=== PATIENT | female | born 1995 | race African-American/Black ===

== ENCOUNTER 2016-03-23 12:09 | Emergency (ER) | payer SELFPAY ==
[2016-03-23 12:28] VITALS: BP 157/93
--- NOTE | 2016-03-23 13:08 | UC ---
Headache HPI - HPI Summary HPI Summary: 1 MONTH OF RIGHT SIDED KING DESCRIBED "SHARP AND THROBBING". CONSTANT KING - IBUPROFEN NOT HELPFUL. ALSO HAS RIGHT EAR PAIN PAST 2 WEEKS. VISION IN RIGHT EYE IS OCCASIONALLY BLURRY. HEARING SLIGHTLY MUTED. IS NOT A KING PERSON; DOES NOT USUALLY GET KING. DENIES FEVER. DOES HAVE NAUSEA AND PHOTOPHOBIA. - History Of Current Complaint Chief Complaint: UCGeneralIllness Stated Complaint: HEADACHES Time Seen by Provider: 03/23/16 13:06 Hx Obtained From: Patient Hx Last Menstrual Period: 02/13/16 Onset/Duration: Gradual Onset, Lasting Weeks, Still Present Pain Intensity: 10 Pain Scale Used: 0-10 Numeric Timing: Constant Character: Sharp Location of Headache: Parietal Aggravating Factor: Bright Lights Allevating Factors: Nothing Associated Signs And Symptoms: Positive: Nausea, Visual Changes - OCCASIONAL RIGHT EYE BLURRINESS - Allergies/Home Medications Allergies/Adverse Reactions: Allergies Allergy/AdvReac Type Severity Reaction Status Date / Time Penicillins [PCN] Allergy Unknown Unknown Verified 03/23/16 12:28 Reaction Details Home Medications: Home Medications Zubfern-Nozwlckftkgcy-Nfiuobtz [Excedrin Extra Strength 250-250-65 mg] 2 tab PO PRN 03/23/16 [History] PMH/Surg Hx/FS Hx/Imm Hx Previously Healthy: Yes Endocrine History Of: Denies: Diabetes, Thyroid Disease Cardiovascular History Of: Denies: Cardiac Disorders, Hypertension Respiratory History Of: Denies: COPD, Asthma GI/ History Of: Denies: Ulcer - Surgical History Surgical History: None Surgery Procedure, Year, and Place: - Family History Known Family History: Positive: Diabetes - Social History Alcohol Use: Occasionally Substance Use Type: None Smoking Status (MU): Light Every Day Tobacco Smoker Type: Cigarettes Amount Used/How Often: 2 sig a day Household Exposure Type: Cigarettes - Immunization History Most Recent Influenza Vaccination: none Review of Systems Constitutional: Negative ENT: Ear Ache Respiratory: Negative Cardiovascular: Negative Gastrointestinal: Other - NAUSEA Genitourinary: Negative Neurological: Headache All Other Systems Reviewed And Are Negative: Yes Physical Exam Triage Information Reviewed: Yes Appearance: Well-Appearing, No Pain Distress, Well-Nourished Vital Signs: Initial Vital Signs Temp 98.7 F 03/23/16 12:21 Pulse 93 03/23/16 12:21 Resp 16 03/23/16 12:21 BP 157/93 03/23/16 12:21 Pulse Ox 100 03/23/16 12:21 Vital Signs Reviewed: Yes Eyes: Positive: Conjunctiva Clear ENT: Positive: Hearing grossly normal, Pharynx normal, TMs normal, Other: - FLUID BEHIND BOTH TMs Neck: Positive: Supple Respiratory: Positive: No respiratory distress, No accessory muscle use Cardiovascular: Positive: Pulses Normal Abdomen Description: Positive: Soft Musculoskeletal: Positive: No Edema Neurological: Positive: Alert Psychological: Positive: Age Appropriate Behavior Skin: Negative: rashes Diagnostics - Radiology CT HEAD W/O CONTRAST Xray Interpretation: No Acute Changes Radiology Interpretation Completed By: Radiologist Headache Course/Dx - Course Course Of Treatment: LMP 02/13/16. PT HAS NOT HAD SEX SINCE PRIOR TO HER LAST PERIOD. STATES NO POSSIBILITY OF . - Differential Dx/Diagnosis Provider Diagnoses: HEADACHE Discharge - Discharge Plan Condition: Stable Disposition: HOME Prescriptions: Ketorolac TAB (NF) [Toradol TAB (NF)] 10 mg PO Q6H PRN #12 tab PRN Reason: Headache Ondansetron ODT TAB* [Zofran Odt TAB*] 4 mg PO Q6H PRN #20 tab.odt PRN Reason: Nausea/Vomiting Patient Education Materials: General Headache (ED) Additional Instructions: CT HEAD UNREMARKABLE. GET YOUR VISION CHECKED TO MAKE SURE YOU DON'T NEED CORRECTIVE LENSES. GET ENOUGH REST AND HYDRATE WELL. GO TO THE ER WITHOUT FAIL IF YOUR SYMPTOMS WORSEN OR DO NOT IMPROVE. CALL THE NUMBER BELOW FOR ASSISTANCE IN ESTABLISHING WITH A PCP An additional resource available to assist in finding the appropriate physician for your health care needs is the [facility] ([facility]). You may contact them by calling [phone].
--- NOTE | 2016-03-23 13:48 | RAD ---
INDICATION: New onset headaches COMPARISON: October 22, 2013 TECHNIQUE: Noncontrast axial source images were acquired from the skull base to the vertex. FINDINGS: Ventricles/sulci: The ventricles and cisterns are normal in size and configuration for age. Brain parenchyma: There is no focal parenchymal finding, evidence of intracranial mass, or intracranial mass effect. Intracranial hemorrhage:None. Extra-axial spaces: There are no abnormal extra axial fluid collections or evidence of extra-axial mass. Calvarium: There is no calvarial fracture or other calvarial abnormality. Scalp: There is no evidence of scalp or extracalvarial soft tissue abnormality. Paranasal sinuses/mastoid: The visualized paranasal sinuses and the mastoid air cells are clear. Other: None. IMPRESSION: NEGATIVE EXAMINATION
[2016-03-23] MEDS ORDERED: Ketorolac INJ* 60 MG/2 ML VIAL IM ONE (13:55)
== END 2016-03-23 14:30 | disposition home or self-care (01) ==
LOC: UCEAST 12:09
DX: R51 Headache (principal); H92.01 Otalgia, right ear; R11.0 Nausea; H53.141 Visual discomfort, right eye; Z88.0 Allergy status to penicillin; F17.210 Nicotine dependence, cigarettes, uncomplicated
CPT/HCPCS: 70450; 96372; 99212; G0463; J1885

== ENCOUNTER 2016-07-21 13:01 | Emergency (ER) | payer OTHER ==
[2016-07-21 14:19] VITALS: BP 113/83
--- NOTE | 2016-07-21 16:07 | UC ---
Throat Pain/Nasal Gabriel HPI - HPI Summary HPI Summary: PATIENT ARRIVES TO ED WITH CC OF THROAT PAIN AND SEVERAL SYNCOPAL EPISODES OVER MANY YEARS. SHE STATES THE THROAT PAIN HAS BEEN PRESENT FOR ABOUT 2 WEEKS, BUT SYNCOPE, INTERMITTENT SHORTNESS OF BREATH AND INSOMNIA HAVE BEEN PRESENT FOR MANY YEARS AND SHE HAS NOT BEEN TO SEE A PROVIDER. SHE DENIES PCP AND STATES SHE HAS NEVER WANTED TO GO TO THE DOCTOR BECAUSE THEY ALWAYS GIVE BAD NEWS. SHE DENIES SYNCOPE OR SHORTNESS OF BREATH TODAY. IT WAS EXPLAINED TO PATIENT WE ARE UNABLE TO DO BLOOD WORK IN REGARDS TO LONG STANDING ISSUES AND SHE IS REFERRED TO PCP OFFICE. SHE IS WILLING TO GO AND UNDERSTANDS WE ARE LIMITED ABOUT TODAYS VISIT. SHE STATES SHE WORKS ABOUT 16 HOURS PER DAY AND DOESN'T DRINK WATER DURING THE DAY AND ONLY DRINKS COFFEE. THIS WAS EXPLAINED TO PATIENT A SOURCE OF HER ISSUES. - History of Current Complaint Chief Complaint: UCDizziness Stated Complaint: FAINTING,SORE THROAT Time Seen by Provider: 07/21/16 13:35 Hx Obtained From: Patient Hx Last Menstrual Period: currently having her period ?: No Onset/Duration: Gradual Onset, Worse Since - LAST FEW WEEKS Severity: Mild Pain Intensity: 0 Pain Scale Used: 0-10 Numeric Cough: None - Epiglottits Risk Factors Epiglottis Risk Factors: Negative - Allergies/Home Medications Allergies/Adverse Reactions: Allergies Allergy/AdvReac Type Severity Reaction Status Date / Time Penicillins [PCN] Allergy Unknown Unknown Verified 03/23/16 12:28 Reaction Details PMH/Surg Hx/FS Hx/Imm Hx Previously Healthy: Yes Endocrine History Of: Denies: Diabetes, Thyroid Disease Cardiovascular History Of: Denies: Cardiac Disorders, Hypertension Respiratory History Of: Denies: COPD, Asthma GI/ History Of: Denies: Ulcer - Surgical History Surgical History: None Surgery Procedure, Year, and Place: - Family History Known Family History: Positive: Diabetes - Social History Occupation: Employed Full-time Lives: With Family Alcohol Use: Occasionally Substance Use Type: None Smoking Status (MU): Light Every Day Tobacco Smoker Type: Cigarettes Amount Used/How Often: 2 sig a day Household Exposure Type: Cigarettes - Immunization History Most Recent Influenza Vaccination: none Review of Systems Constitutional: Negative Skin: Negative Eyes: Negative ENT: Sore Throat Respiratory: Negative Cardiovascular: Negative Genitourinary: Negative Motor: Negative Musculoskeletal: Negative Neurological: Negative Psychological: Negative All Other Systems Reviewed And Are Negative: Yes Physical Exam Triage Information Reviewed: Yes Appearance: Well-Appearing, No Pain Distress, Well-Nourished Vital Signs: Initial Vital Signs Temp 98.0 F 07/21/16 13:34 Pulse 70 07/21/16 13:34 Resp 16 07/21/16 13:34 BP 116/71 07/21/16 13:34 Pulse Ox 98 07/21/16 13:34 Vital Signs Reviewed: Yes Eye Exam: Normal Eyes: Positive: Conjunctiva Clear ENT: Positive: Pharynx normal, Tonsillar swelling Dental Exam: Normal Neck exam: Normal Neck: Positive: Supple, Nontender Respiratory Exam: Normal Respiratory: Positive: Chest non-tender, Lungs clear Cardiovascular Exam: Normal Cardiovascular: Positive: RRR Musculoskeletal Exam: Normal Musculoskeletal: Positive: Strength Intact Neurological Exam: Normal Neurological: Positive: Alert Psychological Exam: Normal Psychological: Positive: Normal Response To Family Skin Exam: Normal Throat Pain/Nasal Course/Dx - Course Course Of Treatment: PATIENT WAS ENCOURAGED TO FOLLOW UP WITH PCP FOR THESE ISSUES WHICH HAVE BEEN PRESENT FOR YEARS. SHE AGREES AND STATES SHE IS NOT FEELING SYNCOPE CURRENTLY. SHE IS CURRENTLY EXPERIENCING THROAT PAIN AND STREP TEST WAS NEGATIVE. ENCOURAGED TO REDUCE CAFFEINE INTAKE, REDUCE WORKING HOURS AND STRESS AND FOLLOW UP WITH PCP TO OBTAIN BLOOD WORK, ETC. SHE LOOKS OK ON EXAM AND IS AFEBRILE. SHE IS FEELING WELL OTHER THAN THE CURRENT SORE THROAT. PATIENT IS DISCHARGED WITH LIFESTYLE CHANGES AND INSTRUCTIONS. - Differential Dx/Diagnosis Differential Diagnosis/HQI/PQRI: Influenza, Pharyngitis, URI, Other - INSOMNIA Provider Diagnoses: CHRONIC SYNCOPE, SORE THROAT Discharge - Discharge Plan Condition: Stable Disposition: HOME Patient Education Materials: Syncope (ED), Insomnia (ED) Forms: *Work Release Referrals: [facility] [Provider Group] No Primary Care Phys,NOPCP [Primary Care Provider] - Additional Instructions: Obtain a Primary Care Physician Stop Smoking Eat healthy with protein, vegetables and grains Drink plenty of water Sleep a minimum of 8 hours per day Exercise 3x weekly. Stop drinking any caffeine after 1pm and continue to drink water through the day. If you develop worsening symptoms, go to ED.
== END 2016-07-21 14:24 | disposition home or self-care (01) ==
LOC: UCEAST 13:01
DX: R55 Syncope and collapse (principal); J02.9 Acute pharyngitis, unspecified
CPT/HCPCS: 87651; 99211; G0463

== ENCOUNTER → 2017-01-17 18:48 | Emergency (ER) | payer OTHER ==
[2017-01-17 18:54] VITALS: BP 116/70
--- NOTE | 2017-01-17 20:28 | RAD ---
INDICATION: Shortness of breath. LEFT lower anterior chest pain. 2 days symptoms duration. History of tobacco use. COMPARISON: No relevant prior exams available on the [facility] for comparison. TECHNIQUE: Dual energy PA and routine lateral views of the chest were obtained. REPORT: Clear lungs and pleural spaces. Negative for pneumothorax. The heart, pulmonary vasculature, and mediastinal contours are unremarkable. Unremarkable osseous structures and soft tissue contours. IMPRESSION: No evidence for acute intrathoracic disease.
--- NOTE | 2017-01-17 20:30 | UC ---
Respiratory Complaint HPI - HPI Summary HPI Summary: Patient complains of nontraumatic right lower rib pain, fatigue and cough. She states she has a nonproductive cough. She denies any fever, chills, chest pain, dyspena, wheezing, nausea, vomiting or diarrhea. She denies any prolonged periods of immobility, cancer, DVT/PE, recent surgeries or hormone replacement, or control, leg pain or swelling. - History of Current Complaint Chief Complaint: UCUpperExtremity Stated Complaint: RIB PAIN Time Seen by Provider: 01/17/17 19:59 Hx Obtained From: Patient Hx Last Menstrual Period: <1 WEEK AGO Onset/Duration: Gradual Onset, Lasting Days Severity Initially: Mild Severity Currently: Moderate Character: Cough: Nonproductive Aggravating Factors: Nothing, Other - coughing Associated Signs And Symptoms: Positive: Negative - Risk Factors Pulmonary Embolism Risk Factors: Negative Pseudomonas Risk Factors: Negative - Allergies/Home Medications Allergies/Adverse Reactions: Allergies Allergy/AdvReac Type Severity Reaction Status Date / Time Penicillins [PCN] Allergy Unknown Unknown Verified 01/17/17 18:54 Reaction Details PMH/Surg Hx/FS Hx/Imm Hx Previously Healthy: Yes - Surgical History Surgical History: None Surgery Procedure, Year, and Place: - Family History Known Family History: Positive: Diabetes - Social History Occupation: Employed Full-time Lives: Alone Alcohol Use: None Substance Use Type: None Smoking Status (MU): Current Some Day Smoker Type: Cigarettes Amount Used/How Often: TWICE A WEEK Household Exposure Type: Cigarettes - Immunization History Most Recent Influenza Vaccination: none Review of Systems Constitutional: Negative Skin: Negative Eyes: Negative ENT: Negative Respiratory: Cough Cardiovascular: Negative Gastrointestinal: Negative Genitourinary: Negative Motor: Negative Neurovascular: Negative Musculoskeletal: Myalgia - right anterior rib pain with coughing Neurological: Negative Psychological: Negative All Other Systems Reviewed And Are Negative: Yes Physical Exam Triage Information Reviewed: Yes Appearance: Well-Appearing Vital Signs: Initial Vital Signs Temp 97.7 F 01/17/17 18:49 Pulse 92 01/17/17 18:49 Resp 16 01/17/17 18:49 BP 116/70 01/17/17 18:49 Pulse Ox 100 01/17/17 18:49 Vital Signs Reviewed: Yes Eye Exam: Normal ENT Exam: Normal Neck exam: Normal Neck: Positive: 1 Respiratory Exam: Normal Respiratory: Positive: Decreased breath sounds, Other: - mildly diminished in the right lower lode. Cardiovascular Exam: Normal Cardiovascular: Positive: RRR, No Murmur, Pulses Normal, Brisk Capillary Refill Abdominal Exam: Normal Musculoskeletal Exam: Normal Neurological Exam: Normal Skin Exam: Normal UC Diagnostic Evaluation - Laboratory O2 Sat by Pulse Oximetry: 100 Respiratory Course/Dx - Course Course Of Treatment: Patient presents with complaints of fatigue, cough and left anterior rib pain that occurs when she coughs. VSS.Afebrile. Nontoxic appearance. Chest xray was negative. Patient was treated for URI with Zpk, and I think the rib pain is musculoskeletal from coughing as it it totally reproducilbe. She was taken out of work for one day so she can rest. And I recommend she establish with a PCP. If for any reason her symtpoms do not improve I told her to come back for re-evaluation. She verbalized understanding of and was in agreement with the discharge plan. - Differential Dx/Diagnosis Differential Diagnosis/HQI/PQRI: Bronchitis, Lower Resp Infection Provider Diagnoses: Bronchitis. URI Discharge - Discharge Plan Condition: Stable Disposition: HOME Prescriptions: Azithromycin TAB* [Zithromax TAB (Z-ANA LAURA) 250 mg #6 tabs] 250 mg PO DAILY #6 tab Patient Education Materials: Upper Respiratory Infection (ED) Forms: *Work Release Referrals: No Primary Care Phys,NOPCP [Primary Care Provider] -
== END | disposition home or self-care (01) ==
LOC: UCEAST 18:48
DX: J40 Bronchitis, not specified as acute or chronic (principal); J06.9 Acute upper respiratory infection, unspecified; Z72.0 Tobacco use
CPT/HCPCS: 71020; 99212; G0463

== ENCOUNTER 2018-07-22 19:20 | Emergency (ER) | payer SELFPAY ==
[2018-07-22 19:34] VITALS: BP 101/56
--- NOTE | 2018-07-22 20:44 | UC ---
Eye Complaint HPI - HPI Summary HPI Summary: 23 yo female presents with sinus pain/pressure/congestion, sore throat, dry cough, and left eye redness and drainage for the last 4 days. She has been taking OTC cold medicine with little relief. Denies fever, chills, SOB, chest pain, abdominal pain. No photophobia. Eating and drinking well. - History of Current Complaint Chief Complaint: UCEye Stated Complaint: EYE COMPLAINT Time Seen by Provider: 07/22/18 20:35 Hx Obtained From: Patient Hx Last Menstrual Period: currently Onset/Duration: Gradual Onset Severity Initially: Mild Severity Currently: Mild Pain Intensity: 2 Pain Scale Used: 0-10 Numeric - Allergies/Home Medications Allergies/Adverse Reactions: Allergies Allergy/AdvReac Type Severity Reaction Status Date / Time Penicillins Allergy Unknown Verified 07/22/18 19:35 Reaction Details Home Medications: Home Medications medroxyPROGESTERone ACETATE* [DEPO-Provera] 150 mg IM 07/22/18 [History] PMH/Surg Hx/FS Hx/Imm Hx - Additional Past Medical History Additional PMH: None - Surgical History Surgical History: Yes Surgery Procedure, Year, and Place: D&C - Family History Known Family History: Positive: Diabetes - Social History Occupation: Employed Full-time Lives: With Family Alcohol Use: None Substance Use Type: None Smoking Status (MU): Current Some Day Smoker Type: Cigarettes Amount Used/How Often: TWICE A WEEK Household Exposure Type: Cigarettes - Immunization History Most Recent Influenza Vaccination: none Review of Systems All Other Systems Reviewed And Are Negative: Yes Constitutional: Positive: Negative Skin: Positive: Negative ENT: Positive: Sore Throat, Sinus Congestion, Sinus Pain/Tenderness Respiratory: Positive: Cough Cardiovascular: Positive: Negative Gastrointestinal: Positive: Negative Neurovascular: Positive: Negative Neurological: Positive: Negative Psychological: Positive: Negative Physical Exam - Summary Physical Exam Summary: GENERAL: WDWN. No pain distress. SKIN: No rashes, sores, lesions, or open wounds. HEENT: Head: AT/NC Eyes: EOM intact. PERRLA. LEFT EYE: Mild scleral injection. Conjunctiva with mild erythema and inflammation. Mild clear/yellow discharge. RIGHT EYE: Conjunctiva clear without inflammation or discharge. No FBs appreciated Nose: Nasal mucosa mildly swollen and erythematous with yellow/ clear discharge. TTP maxillary and frontal sinus. Positive post nasal drip Throat: Posterior oropharynx mild erythema and 2+ tonsillar enlargement. No exudates. Uvula midline. No hoarse voice or muffled voice. NECK: Supple. Nontender. No lymphadenopathy. CHEST: No accessory muscle use. Breathing comfortably and in no distress. CV: Pulses intact. Cap refill <2seconds NEURO: Alert. PSYCH: Age appropriate behavior. Triage Information Reviewed: Yes Vital Signs: Initial Vital Signs Temp 100.7 F 07/22/18 19:30 Pulse 83 07/22/18 19:30 Resp 16 07/22/18 19:30 BP 101/56 07/22/18 19:30 Pulse Ox 99 07/22/18 19:30 Laboratory Tests 07/22/18 20:51 Group A Strep Rapid Negative Vital Signs Reviewed: Yes Eye Complaint Course/Dx - Course Course Of Treatment: POC strep negative. Rx for azithromycin for sinusitis. She was dispensed cipro eye drops in the clinic for her left eye conjunctivitis. - Differential Dx/Diagnosis Provider Diagnosis: Left conjunctivitis, Sinusitis Discharge - Sign-Out/Discharge Documenting (check all that apply): Patient Departure All imaging exams completed and their final reports reviewed: No Studies - Discharge Plan Condition: Stable Disposition: HOME Prescriptions: Azithromycin TAB* [Zithromax TAB (Z-ANA LAURA) 250 mg #6 tabs] 2 tab PO .TODAY, THEN 1 DAILY #1 ana laura Patient Education Materials: Pharyngitis (ED) Referrals: No Primary Care Phys,NOPCP [Primary Care Provider] - Additional Instructions: If you develop a fever, shortness of breath, chest pain, new or worsening symptoms - please call your PCP or go to the ED immediately. - Billing Disposition and Condition Condition: STABLE Disposition: Home
[2018-07-22] MEDS ORDERED: Azithromycin TAB* 250 MG PO ONE (20:45)
[2018-07-22] MEDS ORDERED: Ciprofloxacin 0.3% OPTH.SOL* BTL LEFT EYE ONE (20:45)
== END 2018-07-22 21:10 | disposition home or self-care (01) ==
LOC: UCEAST 19:20
DX: J32.9 Chronic sinusitis, unspecified (principal); H10.32 Unspecified acute conjunctivitis, left eye; J02.9 Acute pharyngitis, unspecified; Z88.0 Allergy status to penicillin; Z72.0 Tobacco use
CPT/HCPCS: 87651; 99212; A9270-GY; G0463

== ENCOUNTER 2019-02-01 10:49 | Emergency (ER) | payer SELFPAY ==
[2019-02-01 11:08] VITALS: BP 122/69
--- NOTE | 2019-02-01 11:11 | UC ---
Lower Extremity/Ankle HPI - HPI Summary HPI Summary: Pt presents to reporting pain in right foot. Pt denies specific trauma, but states did twist foot when turned quickly 2 days ago. Pt has not taken analgesia today - pt did take yesterday. Pt states walking with a limp. No knee , hip, back pain. No paresthesia, weakness. no edema, ecchymosis, erythema. No previous injury to this foot. Medications as entered in EMR by jewel flat surfacer were reviewed. - History of Current Complaint Chief Complaint: UCLowerExtremity Stated Complaint: RIGHT FOOT COMPLAINT Time Seen by Provider: 02/01/19 11:09 Hx Obtained From: Patient Hx Last Menstrual Period: currently Severity Initially: Moderate Severity Currently: Moderate Pain Intensity: 8 - Allergies/Home Medications Allergies/Adverse Reactions: Allergies Allergy/AdvReac Type Severity Reaction Status Date / Time Penicillins Allergy Unknown Verified 02/01/19 11:08 Reaction Details PMH/Surg Hx/FS Hx/Imm Hx Previously Healthy: Yes - Surgical History Surgical History: Yes Surgery Procedure, Year, and Place: D&C - Family History Known Family History: Positive: Diabetes, Non-Contributory - Social History Occupation: Employed Full-time Lives: With Family Alcohol Use: Occasionally Substance Use Type: None Smoking Status (MU): Former Smoker Type: Cigarettes Amount Used/How Often: TWICE A WEEK Household Exposure Type: Cigarettes - Immunization History Most Recent Influenza Vaccination: none Review of Systems All Other Systems Reviewed And Are Negative: Yes Constitutional: Positive: Negative Skin: Positive: Negative Cardiovascular: Positive: Negative Motor: Positive: Other - + SLE + flex/ext knee, ankle, toes + TTP dorsum lateral aspect mid metatarsal no edema, ecchymosis no erythema Neurovascular: Positive: Other - + gross sensation throughtout foot Musculoskeletal: Positive: Other: - favoring of left foot with walking Physical Exam Vital Signs: Initial Vital Signs Temp 99.4 F 02/01/19 11:01 Pulse 72 02/01/19 11:01 Resp 16 02/01/19 11:01 BP 122/69 02/01/19 11:01 Pulse Ox 98 02/01/19 11:01 Diagnostics - Radiology No standard instances Radiology Interpretation Completed By: Radiologist - Patient Name: VERENA ROSE Medical Record# : [id number] Ordering Physician: Bre Leon MD Acct.#: [id number] : 1994 Age: 23 Sex: F Location: URGENT CARE - [facility] Exam Date: 02/01/19 1110 ADM Status: REG ER Order Information: FOOT RIGHT 3+ VWS Accession Number: [id number] CPT: 30614 INDICATION: Right foot pain. TECHNIQUE: 3 views of the right foot were obtained. FINDINGS: The soft tissues are unremarkable. The bone mineralization is within normal limits. No fracture is identified. There is an os peroneum. Anatomic alignment is maintained. The joint spaces are preserved. IMPRESSION: NO FRACTURE IDENTIFIED. <Electronically signed by Nguyễn De Jesus MD in OV> [id number] Dictated By: Nguyễn De Jesus MD Dictated Date/Time: 02/01/191157 Transcribed Date/Time: 02/01/191157 Copy to: CC:Bre Leon MD; No Primary Care Phys,NOPCP Imaging - [facility] - [facility] - [facility] [address] [place] [address] ph ([phone]) ph ([phone]) ph ([phone]) This report is only to be considered final once signed by the Provider(s) as displayed in the "<Electronically Signed by >" field (s). Absence of a signature indicates the report is in a draft status and still needs to be finalized. In the event this document was created by someone other than the signing Provider, the individual initiating the document will be listed in the "Entered by:" or "Dictated by:" orosco. 1 of 1 Lower Extremity Course/Dx - Course Course Of Treatment: Pt presents to for evaluation of the right foot x 2 days. Pt does not recall specific injury, but states did twist foot. Pt has taken analgesia with improvement - none today. On exam pain right dorsum, mid lateral MT. Distal CSM intact and full no concern for infection at today's exam image neg fracture will place raffaele, post op shoe, crutches referral to sports medicine, physician referral center motrin/apap ice elevate work note return precautions - Differential Dx/Diagnosis Provider Diagnosis: Contusion of foot, right Discharge ED - Sign-Out/Discharge Documenting (check all that apply): Patient Departure All imaging exams completed and their final reports reviewed: Yes - Discharge Plan Condition: Stable Disposition: HOME Patient Education Materials: Foot Sprain (ED) Forms: *Work Release Referrals: [facility] [Provider Group] [facility] [Outside] Additional Instructions: Okay to alternate ibuprofen (Advil, Motrin) and Tylenol (acetaminophen) every 3 hours for pain or fever. Take with food. Do NOT take for more than 4-5 days. Wear raffaele wrap for support Use hard soled shoe for comfort and support Contact the physician referral center for assistance estalishing with a primary care provider If you continue with foot pain, contact the sports medicine group to schedule a follow-up appointment - Billing Disposition and Condition Condition: STABLE Disposition: Home
[2019-02-01] MEDS ORDERED: Ibuprofen TAB* 600 MG PO ONE (11:15)
--- OUTSIDE RECORDS SUMMARY | 2019-02-03 16:01 | XMS REPORT | Continuity of Care Document ---
:1995 Author Organization [facility] Address [address] [place] [address] Phone Care Team Providers Name Role Phone White DEVELOPMENTAL THERAPISTCarolyn Unavailable Unavailable [facility], NURSE [place] Unavailable Unavailable Allergies, Adverse Reactions, Alerts Substance Reaction Status Penicillins Unknown Active Medications Medication Instructions Dosage Effective Dates Status Comments (start - stop) Depo-Provera 150 mg/mL IM Q 11-13 weeks - Active intramuscular suspension Problems Condition Effective Dates Clinical Status Comments (start - stop) Encounter for surveillance of injectable contraceptive Encounter for surveillance of injectable contraceptive Encounter for test, result negative Encntr for f/u exam aft trtmt for cond oth than malig neoplm Encounter for initial prescription of injectable contracep Encntr screen for dis of the b[facility] Encounter for initial prescription of injectable contracep Encounter for elective termination of Encntr screen for infections w sexl mode of transmiss Less than 8 weeks gestation of Acute vaginitis Human immunodeficiency virus - [HIV] counseling Encounter for test, result negative Encounter for oth general cnsl and advice on contraception Acute vaginitis Encntr screen for infections w sexl mode of transmiss Encounter for oth general cnsl and advice on contraception Encounter for initial prescription of contraceptive pills Encntr screen for infections w sexl mode of transmiss Acute vaginitis RhD positive - Active Scanned medical record reviewed. Procedures Procedure Date INJECTION DEPO/CEFTRIAXONE INJECTION OR LAB ONLY VISIT EST DEPO OTHER Medical Services Contraceptive Area Safety Manager.Svc. Other Area Safety Manager.Svc. STI Results Test Name Date and Time Measure Units Reference Range Abnormal Flag Status Comments No information Advance Directives Directive Yes / No Effective Date File Name No information Encounters Encounter Practice Location Reason(s) Diagnoses Date Provider Providers Description For Visit Copied on Encounter [facility] Encounter for [facility] [place] surveillance of 0- Carolyn. Provider: [facility] injectable [address] contraceptive [place], [address] [place], [address], St, [place], [place], [place], [address], [place], [id number], [place]. [address].Cons [place] ulting tel:[phone] Provider: [id number] NURSE [place] [facility]. [facility] Encounter for [place] Referring [facility] [place] surveillance of [place] Provider: [facility] injectable 9 Sueane. Sueane Finger contraceptiveEncoun [address] [place], [address] [place], W [place] test, result St, [address], [place], negative [place], [address], [place], [place], [id number], [address]. [place], [address]. [place] tel:+60 tel:[phone] tel:[phone] [facility] Encntr for f[facility]u exam [facility]-201 Carolyn. Provider: [facility] oth than malig 9 [address] neoplmEncounter for [place], [address], [place] prescription of [place], St, St, [place], injectable [place], [place], [place] [address], [place], [address]. [id number], [place]. [place] tel:[phone] [facility] Encntr screen for [place] Referring [facility] [place] dis of the [place]. Provider: [facility] bld/bld-form 9 [address] [place] [address] org/immun [place] [place] for initial [place], [address], St, [place], [place], [place], [place] [address], [place], [address]. [id number], contracepEncounter [place]. tel:+[phone] [place] for elective tel: [phone] tel:[phone] termination of [phone] pregnancyEncntr screen for infections w sexl mode of transmissLess than 8 weeks gestation of pregnancyAcute vaginitisHuman immunodeficiency virus [HIV] counseling [facility] Encounter for [facility] [place] test, Roxanne [facility] result 7 . [address] negativeEncounter [place], [address], [place] cnsl and advice on [place], , [place], [place], vaginitisEncntr [address], [id number], screen for [place]. [place] infections w sexl tel: tel: mode of transmiss [phone] [facility] Encounter for [facility]th [facility] [place] general cnsl and . [facility] advice on [address] contraceptionEncoun [place], [address], [place] prescription of [place], St, [place], [place], [address]. [id number], tel:+ [phone] tel: [phone] [facility] Encntr screen for Feb- [facility] [place] infections w sexl Angeline. Southern mode of [address] transmissAcute [place], [address], [address] [place], St, [place], [place], [address]. [id number], tel:+ [place] [phone] tel:+ [phone] Family History Family Member Diagnosis Age At Onset Mother No history of Myocardial infarction Mother No history of Stroke Father No history of Stroke Sister No history of Myocardial infarction Sister No history of Stroke Brother No history of Myocardial infarction Brother No history of Stroke Father No history of Myocardial infarction Immunizations Vaccine Date Status Comments No information Payers Payer name Insurance type Covered democrat ID Authorization(s) [employer] PRESUMPTIVE ELIGIBILITY [id number] Social History Type Description Quantity Date Captured Comments Alcohol Use Details Unknown Caffeine Use Details Unknown Tobacco Use Status Smoking Status Current some day smoker Sex Female Vital Signs Date / Height Weight BMI Pulse Blood Temperature Respiratory Body Head BMI Pulse Inhaled Time: Rate Pressure Rate Surface Circumference percentile Ox Ox Area No information Chief Complaint And Reason For Visit No information Reason For Referral Reason For Referral No information Plan Of Treatment Date Type Action Status Goal Tobacco cessation counseling completed History Of Present Illness Encounter Date Complaint History Of Present Illness No information Functional Status Date Functional Assessment No information Medications Administered Medication Instructions Dosage Effective Dates (start - stop) Status Comments No information Instructions Date Instruction Additional Information No information Assessments Type Assessment Date assessment Encounter for surveillance of injectable contraceptive Goals Health Concern Goal Type Priority Status Date No information Medical Equipment Description Device [place] Device Identifier Effective Dates (start - stop ) Status No information Mental Status Date Cognitive Assessment No information Health Concerns Observation Date No information Concern Status Date No information
== END 2019-02-01 12:44 | disposition home or self-care (01) ==
LOC: UCEAST 10:49
DX: S90.31XA Contusion of right foot, initial encounter (principal); X50.1XXA Overexertion from prolonged static or awkward postures, initial encounter; Y92.9 Unspecified place or not applicable; Z88.0 Allergy status to penicillin; Z87.891 Personal history of nicotine dependence
CPT/HCPCS: 99213; A9270-GY; G0463